=== PATIENT | female | born 1985 | race Caucasian/White ===

== ENCOUNTER 2018-06-23 14:10 | Emergency (ER) | payer OTHER ==
[~2018-06-23] VITALS: Ht 165.1 cm; Wt 99.8 kg
[2018-06-23 16:10] VITALS: BP 123/63
--- NOTE | 2018-06-23 16:23 | PHYS DOC ---
Past Medical History Past Medical History: Anxiety, Depression, Hypertension Past Surgical History: Alcohol Use: None Drug Use: None Adult General Chief Complaint Chief Complaint: HAND PROBLEM HPI HPI Patient is a 33 year old female who presents with bilateral hand swelling for 2 days. She states they did start off feeling itchy and now they are red and swollen. She denies any new products or working with chemicals. She denies this every occurring prior. Pt does report that she was seen in an ER 2 days ago for some chest tightness and work up was all negative so they told her it could be anxiety. She is wondering if this could also be from anxiety. We discussed that anxiety usually wouldn't cause swelling but could she possibly be eating worse, such has high salt, sleeping more, hands lying still, wringing her hands, etc and she said it is possible. Currently she has not pedal edema and no SOB and her chest tightness has not returned since her previous ER visit. Discussed that this currently does not look like an emergent condition, could be contact dermatitis or other benign condition and recommend observation and follow up with her PCP. Pt did request something to help with anxiety. Will recommend Vistaril at this time since it might have added bonus of helping with her hand itching and swelling. Review of Systems Review of Systems Constitutional: Denies fever or chills Eyes: Denies change in visual acuity, redness, or eye pain HENT: Denies nasal congestion or sore throat Respiratory: Denies cough or shortness of breath Cardiovascular: Denies chest pain or SOB GI: Denies abdominal pain, nausea, vomiting, bloody stools or diarrhea Musculoskeletal: Denies back pain or joint pain. Hands feel tight and swollen. Integument: Denies rash or skin lesions. Redness of palms. Neurologic: Denies headache, focal weakness or sensory changes Psych: anxious All other systems were reviewed and found to be within normal limits, except as documented in this note. Allergies Allergies Allergies Coded Allergies Type Severity Reaction Last Updated Verified No Known Drug Allergies 03/25/15 No Physical Exam Physical Exam Constitutional: Well developed, well nourished, no acute distress, non-toxic appearance. HENT: Normocephalic, atraumatic, bilateral external ears normal, oropharynx moist, no oral exudates, nose normal. Neck: Normal range of motion, no tenderness, supple, no stridor. Cardiovascular:Heart rate regular rhythm, no murmur Lungs & Thorax: Bilateral breath sounds clear to auscultation Abdomen: Bowel sounds normal, soft, no tenderness, no masses, no pulsatile masses. Skin: Warm, dry, mild erythema of B palms, no obvious edema but they feel swollen and "tight" to patient. Rull ROM. Back: No tenderness, no CVA tenderness. [] Extremities: no cyanosis, no clubbing, ROM intact, see above, mild erythema and "tight" feeling of hands, no obvious edema Neurologic: Alert and oriented X 3, normal motor function, normal sensory function, no focal deficits noted. Psychologic: Affect normal, judgement normal, mood normal. Reports anxiety, no hyperverbal speech or obvious distress. Current Patient Data Vital Signs Vital Signs Date Time Temp Pulse Resp B/P (MAP) Pulse Ox O2 Delivery O2 Flow Rate FiO2 06/23/18 15:42 97.9 62 18 123/63 (83) 99 97.9 EKG EKG [] Radiology/Procedures Radiology/Procedures [] Course & Med Decision Making Course & Med Decision Making Pt's exam is very benign and do not suspect emergent condition at this time. She is requesting anxiety medicine so will cover with Vistaril which could help with itching of hands as well. Will also recommend low salt diet and elevation of extremities. Pt to return with any worsening of symptoms or see her PCP early next week. Pt reports anxiety but denies SI/HI at this time. Dragon Disclaimer Dragon Disclaimer This electronic medical record was generated, in whole or in part, using a voice recognition dictation system. Departure Departure Impression: Primary Impression: Edema Additional Impression: Anxiety Disposition: 01 HOME, SELF-CARE Condition: STABLE Referrals: ANDREY PETER MD (PCP) Patient Instructions: Anxiety and Panic Attacks, [id number], Edema, Easy-to- Read Scripts Naproxen (NAPROSYN) 500 Mg Tablet 1 TAB PO BID, #20 TAB 1 Refill Prov: AIRAM UMANA 06/23/18 Hydroxyzine Pamoate (VISTARIL) 25 Mg Capsule 1 CAP PO BID for anxiety, #20 CAP 1 Refill Prov: AIRAM UMANA 06/23/18 Problem Qualifiers AIRAM UMANA Jun 23, 2018 16:23
[2018-06-23] MEDS ORDERED: NAPR-683 PO (16:25)
[2018-06-23] MEDS ORDERED: HYDR25CA PO (16:25)
== END 2018-06-23 16:30 | disposition home or self-care (01) ==
LOC: ER 14:10
DX: F41.9 Anxiety disorder, unspecified (principal); R60.0 Localized edema; R07.89 Other chest pain; R22.33 Localized swelling, mass and lump, upper limb, bilateral; I10 Essential (primary) hypertension; F32.9 Major depressive disorder, single episode, unspecified
CPT/HCPCS: 99283; 99284

== ENCOUNTER 2019-01-14 01:32 | Emergency (ER) | payer OTHER ==
[~2019-01-14] VITALS: Ht 165.1 cm; Wt 113.4 kg
[~2019-01-14 01:32] MED LIST: HYDR25CA PO; NAPR-683 PO
[2019-01-14 02:28] LABS: BASO % 0 % (0-3); EOS # 0.1 x10^3/uL (0.0-0.7); EOS % 1 % (0-3); HEMATOCRIT 39.2 % (36.0-47.0); LYMPH # 4.4 x10^3/uL (1.0-4.8); LYMPH % 37 % (24-48); MEAN CORPUSCULAR HEMOGLOBIN 27 pg (25-35); MEAN CORPUSCULAR HGB CONC 33 g/dL (31-37); MEAN CORPUSCULAR VOLUME 81 fL (79-100); MONO # 0.7 x10^3/uL (0.0-1.1); MONO % 6 % (0-9); NEUT # 6.7 x10^3uL (1.8-7.7); NEUT % 56 % (31-73); PLATELET COUNT 335 x10^3/uL (140-400); RED BLOOD COUNT 4.87 x10^6/uL (3.50-5.40); RED CELL DISTRIBUTION WIDTH 15.5 % (11.5-14.5)
[2019-01-14 02:37] LABS: PROTHROMBIN TIME PATIENT 12.7 SEC (11.7-14.0)
[2019-01-14 02:39] LABS: CALCIUM 8.2 mg/dL (8.5-10.1); CREATININE 0.8 mg/dL (0.6-1.0); GFR 82.6; POTASSIUM 3.1 mmol/L (3.5-5.1)
--- NOTE | 2019-01-14 02:42 | PHYS DOC ---
Past Medical History Past Medical History: Anxiety, Depression, Diverticulitis, Hypertension Past Surgical History: Cholecystectomy, Alcohol Use: Rarely Drug Use: None Adult General Chief Complaint Chief Complaint: CHEST PAIN HPI HPI Patient is a 33 year old female who presents with chest pain and pressure. She reports that earlier today she went to another hospital ER for facial and lip swelling. She was treated with IV Benadryl, pepcid and epinephrine IM at 1530. She reports that 18:00 she experienced palpitations, chest pain and pressure. She reports the chest pain is recurrent, located on the left side of her chest, lasts about 10 seconds before spontaneously resolving and increases in pain with deep inspiration. IT FELT BETTER WHEN SHE WAS PROPPED UP ON HER LEFT SIDE ON HER ELBOW IN BED. She reports that Benadryl allows her to go back to sleep, but she wakes up crying with the recurrent chest pain. She denies radiation of the pain to her jaw or arms, however she does report tingling and swelling to her R-arm. She has a history of chest pain that was attributed to chronic anxiety. She denies SOB, abdominal symptoms, [place], changes in vision. She denies clamminess and diaphoresis today but reports sweating through her clothing 4 nights ago. [] Review of Systems Review of Systems Constitutional: Denies fever or chills [] Eyes: Denies change in visual acuity, redness, or eye pain [] Cardiovascular: No additional information not addressed in HPI [] GI: Denies abdominal pain, nausea, vomiting, bloody stools or diarrhea [] : Denies dysuria or hematuria [] Musculoskeletal: Denies back pain or joint pain [] Integument: Denies rash or skin lesions [] Neurologic: Denies headache, focal weakness or sensory changes [] Endocrine: Denies polyuria or polydipsia [] All other systems were reviewed and found to be within normal limits, except as documented in this note. Current Medications Current Medications Current Medications Medications (Trade) Dose Ordered Sig/Franklin Start Time Stop Time Status Last Admin Dose Admin Lorazepam (Ativan) 2 mg 1X ONCE 01/14/19 04:00 01/14/19 04:01 DC 01/14/19 03:30 2 MG Potassium Chloride (KCl Oral Soln) 40 meq 1X ONCE 01/14/19 03:30 01/14/19 03:31 DC 01/14/19 03:30 40 MEQ see med list Allergies Allergies Allergies Coded Allergies Type Severity Reaction Last Updated Verified Gadolinium-Containing Contrast Medi Allergy Severe 01/14/19 Yes ciprofloxacin Allergy Intermediate 01/14/19 Yes ketorolac Allergy Intermediate 01/14/19 Yes Physical Exam Physical Exam Constitutional: Well developed, well nourished, no acute distress, non-toxic appearance. [] HENT: Normocephalic, atraumatic, bilateral external ears normal, oropharynx moist, no oral exudates, nose normal. [] NO OBVIOUS FACIAL SWELLING NOTED Eyes: PERRLA, EOMI, conjunctiva normal, no discharge. [] Neck: Normal range of motion, no tenderness, supple, no stridor. [] Cardiovascular:Heart rate regular rate and rhythm, no murmur, rubs or gallops, no parasternal tenderness to palpation, no carotid bruits auscultated, capillary refill < 2 seconds [] Lungs & Thorax: Bilateral breath sounds clear to auscultation, no wheezes, rales or crackles [] Abdomen: Bowel sounds normal, soft, no tenderness, no masses, no pulsatile masses. [] Skin: Warm, dry, no erythema, no rash. [] Back: No tenderness, no CVA tenderness. [] Extremities: No tenderness, no cyanosis, no clubbing, ROM intact, no edema. [] Neurologic: Alert and oriented X 3, normal motor function, normal sensory function, no focal deficits noted. [] Psychologic: Affect normal, judgement normal, mood normal. [] Current Patient Data Vital Signs Vital Signs Date Time Temp Pulse Resp B/P (MAP) Pulse Ox O2 Delivery O2 Flow Rate FiO2 01/14/19 03:53 67 18 120/58 (78) 97 Room Air 01/14/19 01:38 98.2 98.2 Lab Values Laboratory Tests Test 01/14/19 01:47 White Blood Count 12.0 x10^3/uL (4.0-11.0) H Red Blood Count 4.87 x10^6/uL (3.50-5.40) Hemoglobin 13.0 g/dL (12.0-15.5) Hematocrit 39.2 % (36.0-47.0) Mean Corpuscular Volume 81 fL (79-100) Mean Corpuscular Hemoglobin 27 pg (25-35) Mean Corpuscular Hemoglobin Concent 33 g/dL (31-37) Red Cell Distribution Width 15.5 % (11.5-14.5) H Platelet Count 335 x10^3/uL (140-400) Neutrophils (%) (Auto) 56 % (31-73) Lymphocytes (%) (Auto) 37 % (24-48) Monocytes (%) (Auto) 6 % (0-9) Eosinophils (%) (Auto) 1 % (0-3) Basophils (%) (Auto) 0 % (0-3) Neutrophils # (Auto) 6.7 x10^3uL (1.8-7.7) Lymphocytes # (Auto) 4.4 x10^3/uL (1.0-4.8) Monocytes # (Auto) 0.7 x10^3/uL (0.0-1.1) Eosinophils # (Auto) 0.1 x10^3/uL (0.0-0.7) Basophils # (Auto) 0.0 x10^3/uL (0.0-0.2) Prothrombin Time 12.7 SEC (11.7-14.0) Prothrombin Time INR 1.0 (0.8-1.1) Sodium Level 139 mmol/L (136-145) Potassium Level 3.1 mmol/L (3.5-5.1) L Chloride Level 102 mmol/L (98-107) Carbon Dioxide Level 22 mmol/L (21-32) Anion Gap 15 (6-14) H Blood Urea Nitrogen 10 mg/dL (7-20) Creatinine 0.8 mg/dL (0.6-1.0) Estimated GFR (Cockcroft-Gault) 82.6 BUN/Creatinine Ratio 13 (6-20) Glucose Level 93 mg/dL (70-99) Calcium Level 8.2 mg/dL (8.5-10.1) L Total Bilirubin 0.2 mg/dL (0.2-1.0) Aspartate Amino Transferase (AST) 11 U/L (15-37) L Alanine Aminotransferase (ALT) 16 U/L (14-59) Alkaline Phosphatase 129 U/L (46-116) H Troponin I Quantitative < 0.017 ng/mL (0.000-0.055) Total Protein 7.4 g/dL (6.4-8.2) Albumin 3.6 g/dL (3.4-5.0) Albumin/Globulin Ratio 0.9 (1.0-1.7) L Lipase 124 U/L (73-393) Laboratory Tests 01/14/19 01:47 Laboratory Tests 01/14/19 01:47 EKG EKG EKG: normal axis, sinus rhythm, no appreciated ST elevations or depressions[] Radiology/Procedures Radiology/Procedures [] Impressions: IMPRESSION: No acute process. Electronically signed by: Shantell Caban MD (01/14/2019 3:48 AM) [facility] DICTATED and SIGNED BY: SHANTELL CABAN MD DATE: 01/14/19 0348 Course & Med Decision Making Course & Med Decision Making Pertinent Labs and Imaging studies reviewed. (See chart for details) Pt presents with complaint of chest pain and associated pressure. Pt is young, with history of anxiety and CP attributed to anxiety without known cardiac disease. Will work up cardiac etiology with EKG and troponins, however, low suspicion for cardiac cause of CP at this time. PERC rule assessment meets no qualifying criteria and thus, clinical suspicion for PE is low. Currently favoring anxiety as cause of episode of CP. [] ER WORKUP NEGATIVE PT IS FEELING BETTER. DOES ADMIT TO SIGNIFICANTS STRESS THE LAST FEW DAYS WELL, REQUESTS SOMETHING FOR ANXIETY, ATIVAN RX GIVEN. RETURN PREC DISCUSSED DOES NOT SOUND LIKE ACS, PE OR DISSECTION AT THIS TIME Dragon Disclaimer Dragon Disclaimer This electronic medical record was generated, in whole or in part, using a voice recognition dictation system. Departure Departure Impression: Primary Impression: Chest pain Disposition: HOME, SELF-CARE Condition: STABLE Referrals: ANDREY PETER MD (PCP) Scripts Lorazepam (ATIVAN) 1 Mg Tablet 1 MG PO BID PRN for ANXIETY / AGITATION, #15 TAB Prov: EDILBERTO HALL MD 01/14/19 EDILBERTO HALL MD Jan 14, 2019 02:42
[2019-01-14 02:48] LABS: ALBUMIN 3.6 g/dL (3.4-5.0); ALBUMIN/GLOBULIN RATIO 0.9 (1.0-1.7); TOTAL BILIRUBIN 0.2 mg/dL (0.2-1.0); TOTAL PROTEIN 7.4 g/dL (6.4-8.2)
[2019-01-14] MEDS ORDERED: POTASSIUM CHLORIDE 20 MEQ/15 ML ORAL LIQUID. PO ONE (03:30)
[2019-01-14] MEDS ORDERED: LORA-434 PO (03:48)
--- NOTE | 2019-01-14 03:51 | RAD ---
AP chest x-ray HISTORY: Chest pain. FINDINGS: Heart size normal. Mediastinal silhouette is normal. No pneumothorax, pulmonary opacities or pleural effusions. The bones are unremarkable. IMPRESSION: No acute process. Electronically signed by: Nathanael Caban MD (01/14/2019 3:48 AM) [facility]
[2019-01-14 03:53] VITALS: BP 120/58
[2019-01-14] MEDS ORDERED: LORazepam 1 MG TABLET PO ONE (04:00)
--- NOTE | 2019-01-14 10:28 | EKG ---
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
== END 2019-01-14 03:55 | disposition home or self-care (01) ==
LOC: ER 01:32
DX: R07.89 Other chest pain (principal); F41.9 Anxiety disorder, unspecified; F32.9 Major depressive disorder, single episode, unspecified; I10 Essential (primary) hypertension; Z90.49 Acquired absence of other specified parts of digestive tract; Z98.890 Other specified postprocedural states; Z88.8 Allergy status to other drugs, medicaments and biological substances; Z88.1 Allergy status to other antibiotic agents
CPT/HCPCS: 36415; 71045; 80053; 83690; 84484; 85025; 85610; 93005; 99285-25

== ENCOUNTER 2019-01-17 03:09 | Emergency (ER) | payer OTHER ==
[~2019-01-17] VITALS: Ht 165.1 cm; Wt 113.4 kg
[~2019-01-17 03:09] MED LIST changes: +LORA-434 PO
[2019-01-17 03:20] VITALS: BP 136/76
[2019-01-17] MEDS ORDERED: METH4TAB2 PO (03:35)
[2019-01-17] MEDS ORDERED: FEXO180T81 PO (03:35)
--- NOTE | 2019-01-17 03:35 | PHYS DOC ---
Past Medical History Past Medical History: Anxiety, Depression, Diverticulitis, Hypertension Past Surgical History: Cholecystectomy, Alcohol Use: Rarely Drug Use: None Adult General Chief Complaint Chief Complaint: ITCHING HPI HPI Patient is a 33-year-old female who presents with complaint of rash and itching primarily to her upper trunk, face and neck as well as scalp. Patient states that symptoms have been going on for about the last 6 days. She states that her doctor diagnosed her with ringworm but also states that she has been taking some Benadryl and Pepcid. She denies any chest pain or shortness breath. Patient is not aware of any cause of the rash. She states that it generally occurs when she lays down to go to sleep and then she wakes up with the rash. Review of Systems Review of Systems Constitutional: Denies fever or chills [] HENT: Denies nasal congestion or sore throat [] Respiratory: Denies cough or shortness of breath [] Cardiovascular: No additional information not addressed in HPI [] Integument: Positive rash and itching[] Current Medications Current Medications Current Medications Medications (Trade) Dose Ordered Sig/Franklin Start Time Stop Time Status Last Admin Dose Admin Diphenhydramine HCl (Benadryl) 50 mg 1X ONCE 01/17/19 04:00 01/17/19 04:01 DC 01/17/19 03:54 50 MG Methylprednisolone Sodium Succinate (SOLU-Medrol 125MG VIAL) 125 mg 1X ONCE 01/17/19 04:00 01/17/19 04:01 DC 01/17/19 03:56 125 MG Allergies Allergies Allergies Coded Allergies Type Severity Reaction Last Updated Verified Gadolinium-Containing Contrast Medi Allergy Severe 01/14/19 Yes ciprofloxacin Allergy Intermediate 01/14/19 Yes ketorolac Allergy Intermediate 01/14/19 Yes Physical Exam Physical Exam Constitutional: Well developed, well nourished, no acute distress, non-toxic appearance. [] Eyes: PERRLA, EOMI, conjunctiva normal, no discharge. [] Neck: Normal range of motion, no tenderness, supple, no stridor. [] Cardiovascular: Regular rate and rhythm[] Lungs & Thorax: Bilateral breath sounds clear to auscultation [] Skin: An urticarial rash is present around the face, anterior neck as well as upper trunk. [] Extremities: No tenderness, no cyanosis, no clubbing, ROM intact, no edema. [] Current Patient Data Vital Signs Vital Signs Date Time Temp Pulse Resp B/P (MAP) Pulse Ox O2 Delivery O2 Flow Rate FiO2 01/17/19 03:20 98.4 99 20 136/76 (96) 98 Room Air 98.4 EKG EKG [] Radiology/Procedures Radiology/Procedures [] Course & Med Decision Making Course & Med Decision Making Pertinent Labs and Imaging studies reviewed. (See chart for details) [] Dragon Disclaimer Dragon Disclaimer This electronic medical record was generated, in whole or in part, using a voice recognition dictation system. Departure Departure Impression: Primary Impression: Urticaria Disposition: HOME, SELF-CARE Condition: STABLE Referrals: RAS LOPEZ MD (PCP) Patient Instructions: Hives Scripts Fexofenadine Hcl (ADE ALLERGY) 180 Mg Tablet 1 TAB PO DAILY, #14 TAB Prov: MARTA LUA Jr. DO 01/17/19 Methylprednisolone (MEDROL) 4 Mg Tab.ds.pk 1 PKG PO UD, #1 PKG Prov: MARTA LUA Jr. DO 01/17/19 MARTA LUA Jr. DO Jan 17, 2019 03:35
[2019-01-17] MEDS ORDERED: methylPREDNISolone SOD SUCC PF 125 MG/2 ML VIAL. IM ONE (04:00)
[2019-01-17] MEDS ORDERED: diphenhydrAMINE 50 MG/ML VIAL IM ONE (04:00)
== END 2019-01-17 04:16 | disposition home or self-care (01) ==
LOC: ER 03:09
DX: L50.9 Urticaria, unspecified (principal); F41.9 Anxiety disorder, unspecified; F32.9 Major depressive disorder, single episode, unspecified; I10 Essential (primary) hypertension; Z90.49 Acquired absence of other specified parts of digestive tract; Z98.890 Other specified postprocedural states; Z88.1 Allergy status to other antibiotic agents; Z88.8 Allergy status to other drugs, medicaments and biological substances
CPT/HCPCS: 96372; 99284; J1200; J2930

== ENCOUNTER 2019-01-22 00:19 | Emergency (ER) | payer MEDICAID, OTHER ==
[~2019-01-22] VITALS: Ht 165.1 cm; Wt 113.4 kg
[~2019-01-22 00:19] MED LIST changes: +FEXO180T81 PO; +METH4TAB2 PO
[2019-01-22] MEDS ORDERED: FAMOTIDINE 20 MG/2 ML VIAL IVP ONE (00:45)
[2019-01-22] MEDS ORDERED: methylPREDNISolone SOD SUCC PF 125 MG/2 ML VIAL. IV ONE (00:45)
[2019-01-22 02:30] VITALS: BP 133/56
[2019-01-22] MEDS ORDERED: LORazepam 1 MG TABLET PO ONE (02:45)
--- NOTE | 2019-01-22 03:14 | PHYS DOC ---
Past Medical History Past Medical History: Anxiety, Depression, Diverticulitis, Hypertension Past Surgical History: Cholecystectomy, Alcohol Use: Rarely Drug Use: None Adult General Chief Complaint Chief Complaint: ALLERGIC REACTION HPI HPI Patient is a 33 year old female who presents with rash and facial swelling brought in by ambulance this is her now fourth visit in the last week or so for similar symptoms I saw her recently she had been outside hospital apparently she had gotten epinephrine several days ago for facial swelling and allergic reaction to unknown agent she came to this ER for chest pain she was ruled out she went home she came back with allergy symptoms then she did receive some steroids from Dr. Fajardo she is coming back today she says every time when she lays down in bed at night she gets swelling of her face and itching of her face and also a rash pops up. She has been using Benadryl last dose was several hours ago last steroid dose was this morning no definite known allergy exposure she has an appointment with an chemistry instructor this coming week. She does get some chest tightness because she is wondering about her symptoms. Of note she did go to her primary doctor who did some lab work she showed me the lab work on her iPhone her chemistry panel was essentially within normal limits her ESR and CRP were mildly elevated these labs were done just a couple of days ago I don't think we need to repeat them. Review of Systems Review of Systems Constitutional: Denies fever or chills [] Eyes: Denies change in visual acuity, redness, or eye pain [] Cardiovascular: No additional information not addressed in HPI [] GI: Denies abdominal pain, nausea, vomiting, bloody stools or diarrhea [] Neurologic: Denies headache, focal weakness or sensory changes [] Endocrine: Denies polyuria or polydipsia [] All other systems were reviewed and found to be within normal limits, except as documented in this note. Current Medications Current Medications Current Medications Medications (Trade) Dose Ordered Sig/Franklin Start Time Stop Time Status Last Admin Dose Admin Famotidine (Pepcid Vial) 20 mg 1X ONCE 01/22/19 00:45 01/22/19 00:47 DC 01/22/19 00:57 20 MG Lorazepam (Ativan) 1 mg 1X ONCE 01/22/19 02:45 01/22/19 02:46 DC 01/22/19 02:48 1 MG Methylprednisolone Sodium Succinate (SOLU-Medrol 125MG VIAL) 125 mg 1X ONCE 01/22/19 00:45 01/22/19 00:47 DC 01/22/19 00:57 125 MG Allergies Allergies Allergies Coded Allergies Type Severity Reaction Last Updated Verified Gadolinium-Containing Contrast Medi Allergy Severe 01/14/19 Yes ciprofloxacin Allergy Intermediate 01/14/19 Yes ketorolac Allergy Intermediate 01/14/19 Yes Physical Exam Physical Exam Constitutional: Well developed, well nourished, no acute distress, non-toxic appearance. [] HENT: Normocephalic, atraumatic, bilateral external ears normal, oropharynx moist, no oral exudates, nose normal. []Oropharynx is normal there may be some very mild swelling only Eyes: PERRLA, EOMI, conjunctiva normal, no discharge. [] Neck: Normal range of motion, no tenderness, supple, no stridor. [] Cardiovascular:Heart rate regular rhythm, no murmur [] Lungs & Thorax: Bilateral breath sounds clear to auscultation [] Abdomen: Bowel sounds normal, soft, no tenderness, no masses, no pulsatile masses. [] Skin: There is a confluent urticarial rash noted on the face in the thorax some scattered spots on the feet as well she does show me a picture looks very much like urticaria from yesterday she is getting ringworm treatment from her primary doctor as well in case of that Back: No tenderness, no CVA tenderness. [] Extremities: No tenderness, no cyanosis, no clubbing, ROM intact, no edema. [] Neurologic: Alert and oriented X 3, normal motor function, normal sensory function, no focal deficits noted. [] Psychologic: Affect normal, judgement normal, mood normal. [] Current Patient Data Vital Signs Vital Signs Date Time Temp Pulse Resp B/P (MAP) Pulse Ox O2 Delivery O2 Flow Rate FiO2 01/22/19 02:30 72 19 133/56 (81) 97 Room Air 01/22/19 00:19 98.3 98.3 EKG EKG [] Radiology/Procedures Radiology/Procedures [] Course & Med Decision Making Course & Med Decision Making Pertinent Labs and Imaging studies reviewed. (See chart for details) []After treatment patient's facial rash basically went away completely she did have some mild chest tightness we did EKG that looked fine EKG did show a normal sinus rhythm rate of 64 no acute ischemic changes noted interpreted by me time of encounter I tried to reassure the patient and recommended continue steroids finish the prescription and follow-up with allergy as she has scheduled unclear if this is due to a viral or unknown allergic agent Dragon Disclaimer Dragon Disclaimer This electronic medical record was generated, in whole or in part, using a voice recognition dictation system. Departure Departure Impression: Primary Impression: Urticaria Disposition: HOME, SELF-CARE Condition: STABLE Referrals: RAS LOPEZ MD (PCP) Patient Instructions: Felipa, [id number] EDILBERTO HALL MD Jan 22, 2019 03:14
--- NOTE | 2019-01-22 14:43 | EKG ---
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
== END 2019-01-22 02:53 | disposition home or self-care (01) ==
LOC: ER 00:19
DX: L50.9 Urticaria, unspecified (principal); I10 Essential (primary) hypertension; Z88.1 Allergy status to other antibiotic agents; Z91.041 Radiographic dye allergy status; Z88.6 Allergy status to analgesic agent
CPT/HCPCS: 93005; 96374; 96375; 99284; J2930; J3490